=== PATIENT | female | born 1930 | race Caucasian/White ===

== ENCOUNTER → 2016-12-12 | Outpatient (CLI) | payer MEDICARE, BC ==
[~2016-12-12] MED LIST: ALEVE220 M1 PO; DILTIAZEM 24HR240 M2 PO; ESTRACE0.5 MG PO; ZESTRIL40 MG PO
--- NOTE | ~2016-12-12 | MY29 ---
[facility] A Service of [facility] [place] RADIOLOGY TEXT RESULTS PATIENT: NOVA SANCHES LOCATION: [facility] : 34 UNIT #: [id number] AGE: [address]: Dave Mcallister MD SEX: F ORDER DR: [id number] [facility] [address] [place], [place] [address] [id number] O MR#: [id number] Acc #: [id number] NAME: NOVA SANCHES : 1930 SEX: F STUDY DATE/TIME: 12/12/2016 10:53 UNIT: [facility] ROOM: STUDY DESCRIPTION: [facility] SCREEN[facility] W/ CAD BILAT Attending Physician: Dave Mcallister M.D. Ordering Physician: Dave Mcallister M.D. Primary Care Physician: Dave Mcallister M.D. MEDICAL IMAGING REPORT This report is preliminary unless electronic signature is present EXAM Digital screening mammogram with CAD. INDICATIONS Routine screening. PROCEDURE Bilateral CC and MLO views obtained on a digital mammography unit, FDA-approved CAD device utilized. COMPARISON 03/22/2015 FINDINGS Heterogeneous fibroglandular density could obscure small mass. There is no dominant mass or suspicious calcification. IMPRESSION Negative screening mammogram. Screen interval in one year suggested. Patients over the age of 40 are entered into a reminder system with target due date for the next mammogram. A result letter will also be sent to the patient. BIRADS: 1 Negative. Dictated by... Rey Schulz M.D. THIS IS AN ELECTRONICALLY VERIFIED REPORT Rey Schulz M.D. at 12/13/2016 7:12 AM [facility] A Service [facility] RADIOLOGY TEXT RESULTS PATIENT: NOVA SANCHES LOCATION: [facility] : 34 UNIT #: [id number] AGE: [address]: Dave Mcallister MD SEX: F ORDER DR: Christofer TD: 12/12/2016 18:40 JOB #: [id number] MEDICAL IMAGING REPORT Page 1 of 1 COPY
== END | disposition home or self-care (01) ==
LOC: CWCC 10:25
DX: Z12.31 Encounter for screening mammogram for malignant neoplasm of breast (principal)
CPT/HCPCS: G0202